=== PATIENT | female | born 1995 | race Caucasian/White ===

== ENCOUNTER 2017-04-11 23:10 | Inpatient (IN) | payer MEDICAID ==
[~2017-04-11] VITALS: Ht 167.6 cm; Wt 90.0 kg
[2017-04-11] MEDS ORDERED: OXYTOCIN 30U/ 0.9% NaCL 500ML 500 ML ONE (23:35)
[2017-04-11] MEDS ORDERED: NEWBORN KIT ONE (23:35)
[2017-04-11] MEDS ORDERED: OXYTOCIN 30U/ 0.9% NaCL 500ML 500 ML IV ONE (23:42)
[2017-04-11] MEDS ORDERED: OXYTOCIN 30U/ 0.9% NaCL 500ML 500 ML IV PRN (23:42)
[2017-04-11] MEDS: D5%-LACTATED RINGERS 1,000 ML IV SCH (23:42)
[2017-04-11] MEDS: PLEASE ENTER ALLERGIES MC SCH ×2 (23:45)
[2017-04-11] MEDS: LACTATED RINGERS 1,000 ML IV SCH (23:45)
[2017-04-12] MEDS ORDERED: ALUMINUM/MAG/SIMETHICONE 30 ML UDC PO PRN
[2017-04-12] MEDS ORDERED: ONDANSETRON 2MG/ML, 2ML IVPush PRN
[2017-04-12] MEDS ORDERED: FENTANYL PF 100 MCG/2ML IVPush PRN
[2017-04-12] MEDS ORDERED: SODIUM CITRATE/CITRIC ACID 30 ML UDC PO PRN
[2017-04-12] MEDS: PLEASE ENTER ALLERGIES MC SCH ×28 (00:45→13:45)
[2017-04-12] MEDS ORDERED: FENTANYL/BUPIV./NS/PF 250 ML EPIDCONT ONE (01:29)
[2017-04-12] MEDS ORDERED: FENTANYL PF 100 MCG/2ML ONE (01:29)
[2017-04-12] MEDS ORDERED: BUPIVACAINE 0.25% ONE (01:29)
[2017-04-12] MEDS: LACTATED RINGERS 1,000 ML IV SCH ×3 (01:32→10:06)
[2017-04-12] MEDS ORDERED: FENTANYL/BUPIV./NS/PF 250 ML EPIDCONT SCH (02:06)
[2017-04-12] MEDS ORDERED: LACTATED RINGERS 1,000 ML IVBOLUS PRN (02:30)
[2017-04-12] MEDS ORDERED: OXYTOCIN 30U/ 0.9% NaCL 500ML 500 ML IV SCH (05:26)
[2017-04-12] MEDS ORDERED: MISOPROSTOL 200 MCG TABLET PR PRN (05:30)
[2017-04-12] MEDS ORDERED: DIPH,PERTUSS(ACELL),TET VAC/PF NC IM-VACC PRN (05:30)
[2017-04-12] MEDS ORDERED: MAGNESIUM HYDROXIDE 8%, 30ML UDC PO PRN (05:30)
[2017-04-12] MEDS ORDERED: OXYcodone/APAP 5/325MG TABLET PO PRN (05:30)
[2017-04-12] MEDS ORDERED: ONDANSETRON 2MG/ML, 2ML IV PRN (05:30)
[2017-04-12] MEDS ORDERED: RHOGAM FROM BLOOD BANK 1 NOTE EA IM/IV ONE (05:30)
[2017-04-12] MEDS ORDERED: OXYcodone IR 5MG TABLET PO PRN (05:30)
[2017-04-12] MEDS ORDERED: CALCIUM CARBONATE 500 MG TAB.CHEW PO PRN ×2 (05:30)
[2017-04-12] MEDS ORDERED: MEASLES,MUMPS&RUBELLA VACC/PF 0.5 ML SQ PRN (05:30)
[2017-04-12] MEDS ORDERED: OXYTOCIN 30U/ 0.9% NaCL 500ML 500 ML ONE (05:46)
[2017-04-12] MEDS ORDERED: IBUPROFEN 600 MG TABLET ONE (05:47)
[2017-04-12] MEDS: IBUPROFEN 600 MG TABLET PO PRN ×3 (05:51→19:03)
[2017-04-12] MEDS: D5%-LACTATED RINGERS 1,000 ML IV SCH (07:42)
[2017-04-12 09:00] VITALS: BP 116/55
[2017-04-12] MEDS: PRENATAL VIT/IRON/FA 1 EACH TABLET PO SCH (09:00)
[2017-04-12 12:00] VITALS: BP 112/72
[2017-04-12 16:00] VITALS: BP 116/64
[2017-04-12 21:00] VITALS: BP 125/74
[2017-04-13 01:00] VITALS: BP 118/71
[2017-04-13] MEDS: IBUPROFEN 600 MG TABLET PO PRN ×3 (01:57→18:34)
[2017-04-13 07:45] VITALS: BP 116/70
[2017-04-13] MEDS: PRENATAL VIT/IRON/FA 1 EACH TABLET PO SCH (10:50)
[2017-04-13] MEDS: DOCUSATE 100 MG CAPSULE PO PRN (10:50)
[2017-04-13 19:20] VITALS: BP 133/77
[2017-04-14] MEDS: IBUPROFEN 600 MG TABLET PO PRN ×3 (01:09→13:28)
[2017-04-14] MEDS: PRENATAL VIT/IRON/FA 1 EACH TABLET PO SCH (07:19)
[2017-04-14] MEDS: DOCUSATE 100 MG CAPSULE PO PRN (07:19)
[2017-04-14 07:20] VITALS: BP 129/79
[2017-04-14] MEDS ORDERED: IBUP-1222 PO (13:53)
== END 2017-04-14 15:04 | disposition home or self-care (01) | DRG 775 ==
LOC: LDOP 23:10 → LDIP 23:29 → 2NW 04-12 08:53
PROVIDERS: ADMIT Obstetrics & Gynecology; ATTEND Obstetrics & Gynecology
PROC: 10E0XZZ Delivery of Products of Conception, External Approach (ICD-10-PCS; principal; 2017-04-12)
PROC: 0KQM0ZZ Repair Perineum Muscle, Open Approach (ICD-10-PCS; 2017-04-12)
PROC: 00HU33Z Insertion of Infusion Device into Spinal Canal, Percutaneous Approach (ICD-10-PCS; 2017-04-12)
PROC: 3E0R3CZ (ICD-10-PCS; 2017-04-12)
DX: O77.0 Labor and delivery complicated by meconium in amniotic fluid (principal); O70.1 Second degree perineal laceration during delivery; Z3A.40 40 weeks gestation of pregnancy; Z37.0 Single live birth; Z82.49 Family history of ischemic heart disease and other diseases of the circulatory system; Z83.3 Family history of diabetes mellitus; Z80.9 Family history of malignant neoplasm, unspecified
CPT/HCPCS: 36415; 82803; 85025; 86850; 86900; J7120